=== PATIENT | female | born 1950 | race Two or more races ===

== ENCOUNTER 2023-08-21 15:19 | Emergency (ER) | payer OTHER ==
[~2023-08-21] VITALS: Ht 154.9 cm; Wt 74.8 kg
[2023-08-21] MEDS ORDERED: OXYBUTYNIN CHLO10 MG PO (16:49)
[2023-08-21] MEDS ORDERED: SYNTHROID137 MCG PO (16:49)
[2023-08-21] MEDS ORDERED: DONEPEZIL HCL10 MG PO (16:49)
[2023-08-21] MEDS ORDERED: MONTELUKAST SODI4 M1 (16:50)
[2023-08-21] MEDS ORDERED: ATORVASTATIN CA10 MG PO (16:50)
[2023-08-21 22:34] LABS: HEMATOCRIT 34.6 % (36.0-45.00); HEMOGLOBIN 11.8 g/dL (12.0-15.00); MEAN CELL VOLUME 93.1 fL (80.00-100.00); MEAN CORPUSCULAR HEMOGLOBIN 31.8 pg (27.00-32.0); MEAN CORPUSCULAR HGB CONC 34.1 g/dl (32.0-36.0); PLATELET COUNT 311 K/uL (150-450); RED BLOOD COUNT 3.72 M/uL (4.00-6.00); RED CELL DISTRIBUTION WIDTH 14.1 % (11.5-14.5)
[2023-08-21 22:49] LABS: URINE APPEARANCE Clear; URINE BILIRRUBIN Negative (NEGATIVE); URINE BLOOD Small; URINE COLOR Yellow; URINE GLUCOSE Negative (NEGATIVE); URINE LEUKOCYTE Trace; URINE NITRATE Negative; URINE PROTEIN Negative (NEGATIVE); URINE UROBILINOGEN 0.2 E.U./dl
[2023-08-21 22:53] LABS: URINE EPITHELIAL CELLS 2.6 uL (0.0-38.8); URINE RBC 36.6 uL (0.0-20.8); URINE WBC 20.3 uL (0.0-23.2)
[2023-08-21 22:55] LABS: BILIRUBIN TOTAL 0.47 mg/dL (0.3-1.2); CALCIUM 9.2 mg/dL (8.5-10.1); CREATININE SERUM 0.63 mg/dL (0.55-1.02); GFR 92.89; GLOBULINA 3.9 G/DL (2.4-3.5); POTASSIUM 3.98 mEq/L (3.5-5.1); TOTAL PROTEIN 7.9 gm/dL (6.4-8.2)
[2023-08-21 23:27] LABS: URINE BACTERIA > 9821.5 uL (0.0-1933)
== END 2023-08-22 00:07 | disposition home or self-care (01) ==
LOC: ER 15:19
PROVIDERS: General Practice
DX: N39.0 Urinary tract infection, site not specified (principal); J45.901 Unspecified asthma with (acute) exacerbation; I10 Essential (primary) hypertension; E03.9 Hypothyroidism, unspecified; Z20.822 Contact with and (suspected) exposure to COVID-19
CPT/HCPCS: 94640; 96365; 96372; 99284; J0696; J7042